=== PATIENT | female | born 1935 | race Caucasian/White ===

== ENCOUNTER → 2016-07-20 | Outpatient (CLI) | payer MEDICARE, BC ==
[~2016-07-20] MED LIST: ASPIRINEC PO; BENAZEPRIL; FISH OIL 1,0001 CAP PO; NORVASC; PRAVACHOL; PRILOSEC; PROPRANOLOL; TYLENOL ARTHRITES
--- NOTE | ~2016-07-20 | CT7 ---
[facility] A Service [facility] RADIOLOGY TEXT RESULTS PATIENT: JOHN HSIEH LOCATION: [facility] : [facility] UNIT #: [id number] AGE: [address]: Maria Luisa Fan MD SEX: F ORDER DR: [id number] [address] [address] [id number] O MR#: [id number] Acc #: [id number] NAME: JOHN HSIEH : 1935 SEX: F STUDY DATE/TIME: 07/20/2016 11:25 UNIT: [facility] ROOM: STUDY DESCRIPTION: CT Abdomen Wo Cont Attending Physician: Maria Luisa Fan M.D. Referring Physician: Maria Luisa Fan M.D. Ordering Physician: Maria Luisa Fan M.D. Primary Care Physician: Maria Luisa Fan M.D. MEDICAL IMAGING REPORT This report is preliminary unless electronic signature is present. EXAM CT scan of the abdomen without contrast, 07/20. HISTORY Previous appendectomy with upper abdomen pain for a week with nausea and vomiting. COMPARISON STUDIES 10/19/2005 TECHNIQUE Axial 5 mm images were obtained through the abdomen and pelvis without IV or oral contrast. This CT exam was performed with one or more of the following radiation dose reduction techniques: automatic exposure control, adjustment of mA and/or kV according to patient size, and iterative reconstruction. FINDINGS Lung bases are clear. The liver, gallbladder, spleen, pancreas, adrenal glands and kidneys are normal. The aorta is normal in size. There is no adenopathy. There are some left colon diverticula and without the bowel is normal. The bones are unremarkable. IMPRESSION 1. There are a few left colon diverticula. 2. Otherwise, the study is normal. Dictated by... [facility] A Service [facility] RADIOLOGY TEXT RESULTS PATIENT: JOHN HSIEH LOCATION: [facility] : 35 UNIT #: [id number] AGE: [address]: Maria Luisa Fan MD SEX: F ORDER DR: Claudio Brown M.D. THIS IS AN ELECTRONICALLY VERIFIED REPORT Claudio Brown M.D. at 07/20/2016 1:45 PM ALMA DELIA/canelo TD: 07/20/2016 12:39 JOB #: [id number] MEDICAL IMAGING REPORT Page 1 of 1
== END | disposition home or self-care (01) ==
LOC: SCT 10:00
DX: R10.13 Epigastric pain (principal); K57.30 Diverticulosis of large intestine without perforation or abscess without bleeding; Z90.49 Acquired absence of other specified parts of digestive tract
CPT/HCPCS: 74150

== ENCOUNTER → 2016-07-26 | Outpatient (CLI) | payer MEDICARE, BC ==
--- NOTE | ~2016-07-26 | MY6 ---
[facility] A Service of [facility] & [facility] RADIOLOGY TEXT RESULTS PATIENT: JOHN HSIEH LOCATION: [facility] : 35 UNIT #: [id number] AGE: [address]: Maria Luisa Fan MD SEX: F ORDER DR: [id number] [facility] [address] [place], [place] [address] [id number] O MR#: [id number] Acc #: [id number] NAME: JOHN HSIEH. : 1935 SEX: F STUDY DATE/TIME: 07/26/2016 12:39 UNIT: [facility] ROOM: STUDY DESCRIPTION: MY Mammogram Dx Dig Brian Attending Physician: Maria Luisa Fan M.D. Referring Physician: Maria Luisa Fan M.D. Ordering Physician: Maria Luisa Fan M.D. Primary Care Physician: Maria Luisa Fan M.D. MEDICAL IMAGING REPORT This report is preliminary unless electronic signature is present EXAM Bilateral digital diagnostic mammogram with CAD, 07/26/2016 HISTORY Left upper outer breast soreness intermittently for the past couple of weeks. No documented personal or family history of breast cancer. COMPARISON Bilateral screening mammogram 02/28/2015, 01/12/2014. Bilateral diagnostic mammogram and ultrasound 09/26/2012. FINDINGS CC and MLO views were obtained of each breast and additional true ML views obtained of the left breast. The study was performed utilizing digital technique and reviewed with an FDA-approved CAD device. Heterogeneously dense fibroglandular tissue is present bilaterally which can limit sensitivity of mammography. The parenchymal pattern appears stable. No new or dominant nodule is identified. No architectural distortion is seen. Benign calcifications are present within each breast, but no suspicious clustered microcalcifications are evident. Benign-appearing lymph nodes in each axillary region appear similar to the more remote 2012 examination. As the patient has no target abnormality on mammogram, and no focal palpable complaint, left breast diagnostic ultrasound was deemed unwarranted today. IMPRESSION Benign findings in each breast. No mammographic features suspicious for malignancy. Any further management of the patient's left breast pain should be based upon clinical assessment. The findings and recommendations were discussed with the patient today in the Radiology STS. [facility] A Service of [facility] & [facility] RADIOLOGY TEXT RESULTS PATIENT: JOHN HSIEH LOCATION: [facility] : 35 UNIT #: [id number] AGE: [address]: Maria Luisa Fan MD SEX: F ORDER DR: Department. She is advised to return for routine screening mammogram in 1 year. Patients over the age of 40 are entered into a reminder system with target due date for the next mammogram. A result letter will also be sent to the patient. BIRADS: 2 Benign Finding Dictated by... Carmen Sewell M.D. THIS IS AN ELECTRONICALLY VERIFIED REPORT Carmen Sewell M.D. at 07/27/2016 7:08 AM Rell TD: 07/26/2016 15:18 JOB #: [id number] MEDICAL IMAGING REPORT Page 1 of 1 COPY
== END | disposition home or self-care (01) ==
LOC: CMAM 12:16
DX: N64.4 Mastodynia (principal)
CPT/HCPCS: G0204